=== PATIENT | female | born 2000 | race Caucasian/White ===

== ENCOUNTER 2020-11-18 20:13 | Emergency (ER) | payer OTHER ==
[~2020-11-18] VITALS: Ht 152.4 cm; Wt 97.5 kg
[2020-11-18 21:25] VITALS: BP 139/100
== END 2020-11-18 23:48 | disposition left against medical advice (07) ==
LOC: M.ERS 20:13
DX: Z53.21 Procedure and treatment not carried out due to patient leaving prior to being seen by health care provider (principal)